=== PATIENT | female | born 1985 | race Asian ===

== ENCOUNTER 2016-11-26 09:30 | Outpatient (CLI) | payer OTHER | END 2016-11-26 09:31 | disposition home or self-care (01) | DX: Z36 Encounter for antenatal screening of mother (principal) ==

== ENCOUNTER 2017-01-28 08:00 | Outpatient (CLI) | payer OTHER | END 2017-01-28 23:59 | disposition home or self-care (01) | DX: Z36 Encounter for antenatal screening of mother (principal) ==

== ENCOUNTER 2017-02-26 08:56 | Inpatient (IN) | payer OTHER ==
[2017-02-26] MEDS ORDERED: SODIUM CHLORIDE FLUSH 0.9% 10 ML SYRINGE IVP PRN (09:50)
[2017-02-26] MEDS ORDERED: LACTATED RINGERS 1,000 ML IV SCH ×2 (10:00→15:00)
[2017-02-26] MEDS ORDERED: SODIUM CHLORIDE FLUSH 0.9% 10 ML SYRINGE IVP ONE (11:46)
[2017-02-26] MEDS ORDERED: LACTATED RINGERS 1,000 ML IV ONE (11:46)
[2017-02-26] MEDS ORDERED: fent/BUPIV 2 MCG/0.125% 250 ML EP ONE (13:02)
[2017-02-26] MEDS ORDERED: fentaNYL 100 MCG/2 ML VIAL ONE (13:02)
[2017-02-26] MEDS ORDERED: ROPIVACAINE 0.2% PF 10 ML VIAL EPI ONE (13:30)
[2017-02-26] MEDS ORDERED: diphenhydrAMINE INJ 50 MG/ML VIAL IVP PRN (13:36)
[2017-02-26] MEDS ORDERED: METOCLOPRAMIDE 10 MG/2 ML VIAL IVP PRN (13:36)
[2017-02-26] MEDS ORDERED: fent/BUPIV 2 MCG/0.125% 250 ML EP PRN (13:36)
[2017-02-26] MEDS ORDERED: ONDANSETRON 4 MG/2 ML VIAL IVP PRN (13:36)
[2017-02-26] MEDS ORDERED: ePHEDrine 50 MG/ML AMP IVP PRN (13:36)
[2017-02-26] MEDS ORDERED: NALBUPHINE 20 MG/ML AMP IVP PRN (13:36)
[2017-02-26] MEDS ORDERED: NALOXONE 0.4 MG/ML VIAL IVP PRN (13:36)
[2017-02-26] MEDS ORDERED: LACTATED RINGERS 500 ML IV ONE (13:36)
[2017-02-26] MEDS ORDERED: OXYTOCIN/LACTATED RINGERS 0 ML IV ONE (13:55)
[2017-02-26] MEDS ORDERED: LIDOCAINE 1% 50 ML MDV ONE ×2 (13:56→13:58)
[2017-02-26] MEDS ORDERED: OXYTOCIN/LACTATED RINGERS 250 ML IV ONE ×2 (13:59→14:52)
[2017-02-26] MEDS ORDERED: MINERAL OIL LIGHT 10 ML MC ONE (13:59)
[2017-02-26] MEDS ORDERED: SODIUM CHLORIDE FLUSH 0.9% 10 ML SYRINGE IVP SCH (14:00)
[2017-02-26] MEDS ORDERED: WITCH HAZEL/GLYCERIN 1 EACH MED..PAD TOP PRN (14:52)
[2017-02-26] MEDS ORDERED: HYDROCORTISONE/PRAMOXINE 10 GM PR PRN (14:52)
[2017-02-26] MEDS ORDERED: diphenhydrAMINE 25 MG CAPSULE PO PRN (14:52)
[2017-02-26] MEDS: ACETAMINOPHEN 325 MG TABLET PO PRN (18:38)
[2017-02-26] MEDS: IBUPROFEN 600 MG TABLET PO SCH (18:39)
[2017-02-27] MEDS: IBUPROFEN 600 MG TABLET PO SCH ×4 (00:48→21:50)
[2017-02-27] MEDS ORDERED: SODIUM CHLORIDE FLUSH 0.9% 10 ML SYRINGE IVP ONE (00:50)
[2017-02-27] MEDS: ACETAMINOPHEN 325 MG TABLET PO PRN ×2 (14:20→21:50)
[2017-02-27] MEDS: HYDROcod/ACETAM 5/325 MG TABLET PO PRN (15:59)
[2017-02-28] MEDS: ACETAMINOPHEN 325 MG TABLET PO PRN ×2 (03:54→10:25)
[2017-02-28] MEDS: IBUPROFEN 600 MG TABLET PO SCH ×2 (03:54→10:25)
[2017-02-28] MEDS: HYDROcod/ACETAM 5/325 MG TABLET PO PRN (10:25)
== END 2017-02-28 12:00 | disposition home or self-care (01) | DRG 774 ==
PROC: 10D07Z6 Extraction of Products of Conception, Vacuum, Via Natural or Artificial Opening (ICD-10-PCS; principal; 2017-02-26)
DX: O42.02 Full-term premature rupture of membranes, onset of labor within 24 hours of rupture (principal); O16.3 Unspecified maternal hypertension, third trimester; O69.0XX0 Labor and delivery complicated by prolapse of cord, not applicable or unspecified; O76 Abnormality in fetal heart rate and rhythm complicating labor and delivery; O36.63X0 Maternal care for excessive fetal growth, third trimester, not applicable or unspecified; Z3A.39 39 weeks gestation of pregnancy; Z37.0 Single live birth

== ENCOUNTER 2017-04-16 18:53 | Outpatient (CLI) | payer OTHER | END 2017-04-16 18:54 | disposition home or self-care (01) | LOC: DI 18:53 | PROVIDERS: ATTEND Obstetrics & Gynecology | DX: Z53.9 Procedure and treatment not carried out, unspecified reason (principal) ==

== ENCOUNTER 2019-01-07 14:54 | Outpatient (CLI) | payer BC ==
--- NOTE | 2019-01-08 09:45 | Ultrasound Report ---
Reason: TEST POSITIVE Procedure Date: 01/07/2019 Accession Number: [id number] / [id number] Procedure: US - OB First Trimester CPT Code: FULL RESULT: EXAM: FIRST TRIMESTER OBSTETRIC ULTRASOUND (Less than 11 weeks) EXAM DATE: 01/07/2019 04:14 PM. CLINICAL HISTORY: test positive. LMP: Possibly 11/18/2018, patient unsure of dates. COMPARISONS: None. TECHNIQUE: Transabdominal and transvaginal ultrasound examination with static image documentation. CLINICAL DATES: EGA 9 weeks 4 days with SAMARA 08/08/2019 based on current ultrasound. ASSESSMENT: Gestational Sac: Single intrauterine. Mean gestational sac diameter: 41.6 mm = 9 weeks 4 days. Embryo: CRL (crown-rump length) 27.7 mm = 9 weeks 4 days. Cardiac activity: 170 beats per minute. Yolk sac: 4.2 mm. Amniotic fluid: Not accurately assessed at this gestational age. Early placenta: Not visible at this gestational age. Other: No perigestational fluid collection demonstrated. MATERNAL STRUCTURES: Uterus: Retroverted. Unremarkable. Cervix: Closed. Right Ovary/Adnexa: The ovary measures 2.7 x 2.3 x 2.5 cm, volume 8.4 cc. Unremarkable. Left Ovary/Adnexa: The ovary measures 3.7 x 2.1 x 2.3 cm, volume 8.0 cc. Unremarkable. Free Fluid: None. Other: None. IMPRESSION: 1. Single viable intrauterine at EGA 9 weeks 4 days with SAMARA 08/08/2019 based on crown-rump length given uncertain LMP. 2. Assigned dating is SAMARA 08/08/2019 based on current ultrasound. RADIA
== END 2019-01-07 14:55 | disposition home or self-care (01) ==
LOC: DI 14:54
PROVIDERS: ATTEND Registered Nurse
DX: Z32.01 Encounter for pregnancy test, result positive (principal); Z3A.09 9 weeks gestation of pregnancy
CPT/HCPCS: 76801

== ENCOUNTER 2019-01-19 08:00 | Outpatient (CLI) | payer BC ==
[2019-01-19 16:50] LABS: MUDS CUTOFF CONCENTRATIONS CUTOFF CONC BELOW:
[2019-01-19 17:06] LABS: AMPHETAMINE SCREEN,URINE NEGATIVE (NEGATIVE); BENZODIAZEPINES SCREEN, URINE NEGATIVE (NEGATIVE); COCAINE SCREEN URINE NEGATIVE (NEGATIVE); METHADONE SCREEN, URINE NEGATIVE (NEGATIVE); METHAMPHETAMINES SCREEN, URINE NEGATIVE (NEGATIVE); OPIATE SCREEN, URINE NEGATIVE (NEGATIVE); OXYCODONE SCREEN, URINE NEGATIVE (NEGATIVE); PROPOXYPHENE SCREEN, URINE NEGATIVE (NEGATIVE); TRICYCLIC ANTIDEPRESSANT,URINE NEGATIVE (NEGATIVE)
== END 2019-01-19 23:59 | disposition home or self-care (01) ==
LOC: LAB.R 08:00
PROVIDERS: ATTEND Nurse Practitioner Obstetrics & Gynecology
DX: Z36.9 Encounter for antenatal screening, unspecified (principal); Z11.3 Encounter for screening for infections with a predominantly sexual mode of transmission
CPT/HCPCS: 80306; 87491; 87591

== ENCOUNTER 2019-01-19 13:05 | Outpatient (CLI) | payer BC ==
[2019-02-12 18:33] LABS: BASOPHILS # (AUTO) 0.1 10^3/uL (0.0-0.1); BASOPHILS % (AUTO) 0.5 %; EOSINOPHILS # (AUTO) 0.3 10^3/uL (0.0-0.7); EOSINOPHILS % (AUTO) 2.9 %; HGB - HEMOGLOBIN 12.5 g/dL (12.0-16.0); LYMPHOCYTES # (AUTO) 1.5 10^3/uL (1.5-3.5); LYMPHOCYTES % (AUTO) 14.2 %; MEAN CORPUSCULAR HEMOGLOBIN 28.4 pg (27.0-31.0); MEAN CORPUSCULAR HGB CONC 32.8 g/dL (32.0-36.0); MEAN CORPUSCULAR VOLUME 86.5 fL (81.0-99.0); MEAN PLATELET VOLUME 9.8 fL (7.9-10.8); MONOCYTES # (AUTO) 0.5 10^3/uL (0.0-1.0); MONOCYTES % (AUTO) 5.1 %; NEUTROPHILS # (AUTO) 8.1 10^3/uL (1.5-6.6); NEUTROPHILS % (AUTO) 77.3 %; PLT - PLATELET COUNT 244 10^3/uL (130-450); RED BLOOD COUNT 4.39 10^6/uL (4.20-5.40); RED CELL DISTRIBUTION WIDTH 13.4 % (12.0-15.0); WHITE BLOOD COUNT 10.4 x10^3/uL (4.8-10.8)
[2019-02-13 12:36] LABS: HIV AG/AB 4TH GEN NON-REACTIVE (NON-REACTIVE)
[2019-02-13 12:50] LABS: HEPATITIS B SURFACE ANTIGEN NON-REACTIVE (NON-REACTIVE)
[2019-02-13 13:07] LABS: HEPATITIS C ANTIBODY NON-REACTIVE (NON-REACTIVE)
== END 2019-01-19 23:59 | disposition home or self-care (01) ==
LOC: LAB.N 13:05
PROVIDERS: ATTEND Nurse Practitioner Obstetrics & Gynecology
DX: Z36.9 Encounter for antenatal screening, unspecified (principal)
CPT/HCPCS: 36415; 81001; 81599; 85025; 86762; 86803; 86850; 86900; 86901; 87086; 87340; 87389

== ENCOUNTER 2019-03-06 13:26 | Outpatient (CLI) | payer SELFPAY | END 2019-03-06 13:27 | disposition home or self-care (01) | LOC: LAB 13:26 | DX: Z31.5 Encounter for procreative genetic counseling (principal) | CPT/HCPCS: 36415 ==

== ENCOUNTER 2019-04-03 13:23 | Outpatient (CLI) | payer BC ==
--- NOTE | 2019-04-07 08:58 | Ultrasound Report ---
Reason: ROUTINE SCREENING ULTRASOUND Procedure Date: 04/03/2019 Accession Number: [id number] / [id number] Procedure: US - OB Detailed Eval CPT Code: FULL RESULT: EXAM: COMPLETE OBSTETRICAL ULTRASOUND EXAM DATE: 04/03/2019 02:40 PM. CLINICAL HISTORY: anatomic survey. COMPARISON: OB DETAILED EVAL 10/15/2016 7:53 AM. TECHNIQUE: Real-time sonographic evaluation of the fetus performed by the manager college. Multiple uniforms sales representative static images were saved for review. Additional transvaginal imaging to more accurately evaluate cervical length/placental position/etc. DATING: Established EGA 21 weeks 6 days with SAMARA 08/08/2019 based on LMP. EGA 21 weeks 6 days with SAMARA 08/08/2019 based on LMP. EGA 22 weeks 2 days with SAMARA 08/05/2019 based on the current ultrasound. GENERAL EVALUATION [place] . Cardiac activity: 142 bpm. movement: Visualized. Presentation: Transverse Placenta: Posterior position. No evidence for previa. Umbilical cord: 3 vessel cord. Central placental cord origin. Amniotic fluid: Subjectively normal. MVP 17.65 cm. BIOMETRY Bi-Parietal Diameter (BPD): 5.4 cm, 22 weeks 2 days Head Circumference (HC): 20.1 cm, 22 weeks 2 days Abdominal Circumference (AC): 17.8 cm, 22 weeks 5 days Femur Length (FL): 38.0 cm, 22 weeks 0 days Estimated Weight: 499 g, 70 percentile for 22 weeks 2 days. ANATOMY The intracranial structures, profile, face/nose/lips, spine, 4 chamber heart and outflow tracts, stomach, abdominal wall and cord insertion, diaphragm, kidneys, bladder, and extremities were visualized and demonstrate no abnormality. MATERNAL STRUCTURES Uterus: Unremarkable. Cervix: Long and closed. Transabdominal length 4.4 cm. Right ovary/adnexa: Unremarkable. Left ovary/adnexa: Unremarkable. Free fluid: None. IMPRESSION: 1. Wilcox live intrauterine with gestational age 22 weeks 2 days based on ultrasound. Size is concordant with dates. 2. Estimated weight is within expected limits for assigned dating. 3. Normal anatomic survey. No anatomic abnormalities are detected at this time. RADIA
== END 2019-04-03 13:24 | disposition home or self-care (01) ==
LOC: DI 13:23
PROVIDERS: ATTEND Registered Nurse
DX: Z36.9 Encounter for antenatal screening, unspecified (principal)
CPT/HCPCS: 76811

== ENCOUNTER 2019-04-28 14:44 | Outpatient (CLI) | payer BC ==
[2019-04-28 18:43] LABS: HGB - HEMOGLOBIN 10.5 g/dL (12.0-16.0); MEAN CORPUSCULAR HEMOGLOBIN 28.3 pg (27.0-31.0); MEAN CORPUSCULAR HGB CONC 31.4 g/dL (32.0-36.0); MEAN PLATELET VOLUME 11.7 fL (7.9-10.8); RED BLOOD COUNT 3.71 10^6/uL (4.20-5.40); RED CELL DISTRIBUTION WIDTH 13.2 % (12.0-15.0)
== END 2019-04-28 23:59 | disposition home or self-care (01) ==
LOC: LAB.N 14:44
PROVIDERS: ATTEND Nurse Practitioner Obstetrics & Gynecology
DX: Z36.89 Encounter for other specified antenatal screening (principal)
CPT/HCPCS: 82950; 85027; 86850

== ENCOUNTER 2019-07-15 08:00 | Outpatient (CLI) | payer BC ==
[2019-07-15 14:51] LABS: MUDS CUTOFF CONCENTRATIONS CUTOFF CONC BELOW:
[2019-07-15 15:22] LABS: AMPHETAMINE SCREEN,URINE NEGATIVE (NEGATIVE); BENZODIAZEPINES SCREEN, URINE NEGATIVE (NEGATIVE); COCAINE SCREEN URINE NEGATIVE (NEGATIVE); METHADONE SCREEN, URINE NEGATIVE (NEGATIVE); METHAMPHETAMINES SCREEN, URINE NEGATIVE (NEGATIVE); OPIATE SCREEN, URINE NEGATIVE (NEGATIVE); OXYCODONE SCREEN, URINE NEGATIVE (NEGATIVE); PROPOXYPHENE SCREEN, URINE NEGATIVE (NEGATIVE); TRICYCLIC ANTIDEPRESSANT,URINE NEGATIVE (NEGATIVE)
== END 2019-07-15 23:59 | disposition home or self-care (01) ==
LOC: LAB.R 08:00
PROVIDERS: ATTEND Obstetrics & Gynecology
DX: Z34.90 Encounter for supervision of normal pregnancy, unspecified, unspecified trimester (principal)
CPT/HCPCS: 80306

== ENCOUNTER 2019-07-15 08:00 | Outpatient (CLI) | payer BC ==
[2019-07-15 21:57] LABS: TRICHOMONAS VAGINALIS DNA NEGATIVE (NEGATIVE)
== END 2019-07-15 23:59 | disposition home or self-care (01) ==
LOC: LAB.R 08:00
PROVIDERS: ATTEND Obstetrics & Gynecology
DX: Z34.90 Encounter for supervision of normal pregnancy, unspecified, unspecified trimester (principal)
CPT/HCPCS: 87491; 87591; 87661; 87797

== ENCOUNTER 2019-08-04 11:45 | Outpatient (CLI) | payer BC ==
[2019-08-04 12:00] LABS: HGB - HEMOGLOBIN 12.3 g/dL (12.0-16.0); MEAN CORPUSCULAR HEMOGLOBIN 28.5 pg (27.0-31.0); MEAN CORPUSCULAR HGB CONC 31.9 g/dL (32.0-36.0); MEAN CORPUSCULAR VOLUME 89.4 fL (81.0-99.0); MEAN PLATELET VOLUME 12.8 fL (7.9-10.8); RED BLOOD COUNT 4.32 10^6/uL (4.20-5.40); RED CELL DISTRIBUTION WIDTH 13.2 % (12.0-15.0); WHITE BLOOD COUNT 12.9 x10^3/uL (4.8-10.8)
[2019-08-04 12:09] LABS: ALBUMIN 2.9 g/dL (3.2-5.5); ALBUMIN/GLOBULIN RATIO 0.7 (1.0-2.2); BILIRUBIN,TOTAL 0.4 mg/dL (0.2-1.0); CALCIUM 9.6 mg/dL (8.5-10.3); CREATININE 0.6 mg/dL (0.4-1.0); TOTAL PROTEIN 6.9 g/dL (6.7-8.2); URIC ACID 3.8 mg/dL (2.6-7.2)
[2019-08-04 12:16] LABS: CREATININE,URINE 46.3 mg/dL; MICROALBUM/CREATININE RATIO,UR 4.3 ug/mg (<30.0); MICROALBUMIN,URINE 0.2 mg/dL (0-300.0)
== END 2019-08-04 11:46 | disposition home or self-care (01) ==
LOC: LAB 11:45
PROVIDERS: ATTEND Nurse Practitioner Obstetrics & Gynecology
DX: R03.0 Elevated blood-pressure reading, without diagnosis of hypertension (principal)
CPT/HCPCS: 36415; 80053; 82043; 82570; 84550; 85027

== ENCOUNTER 2019-08-11 13:42 | Inpatient (IN) | payer BC ==
[~2019-08-11 13:42] MED LIST: ONDANSETRON 4 MG/2 ML VIAL IVP PRN; SODIUM CHLORIDE FLUSH 0.9% 10 ML SYRINGE IVP PRN; miSOPROStol 100 MCG TABLET BC SCH
--- NOTE | 2019-08-11 13:46 | HISTORY & PHYSICAL EXAMINATION ---
Admit History - Visit Reason Visit Reason: Other - : 4 Parity: 2 Premature: 0 Ectopic: 0 : 1 Care: positive: [facility] Risk/History: positive: None Complications This : positive: None Smoking Status: Never smoker - Mother's Labs Mother's Blood Type: positive: O Mother's RH: positive: Positive GBS: positive: Group B Step Negative Rubella Status: positive: Immune Meds/Allgy - Allergies Allergies/Adverse Reactions: Allergies Allergy/AdvReac Type Severity Reaction Status Date / Time No Known Drug Allergies Allergy Verified 10/25/13 20:01 Review of Systems - Constitutional Constitutional: denies: Fatigue, Fever, Chills, Malaise - Eyes Eyes: denies: Blurred vision, Spots in vision, Dipolpia - Cardiovascular Cariovascular: denies: Irregular heart rate, Palpitations, Chest pain, Edema - Respiratory Respiratory: denies: SOB at rest - Gastrointestinal Gastrointestinal: denies: Abdominal pain, Constipation, Diarrhea - Integumentary Integumentary: denies: Rash, Pruritis - Neurological Neurological: denies: Headache - Psychiatric Psychiatric: denies: Depression, Anxiety Physical - Monitoring Heart Rate Baseline: 150 - Presentation Presentation: positive: Vertex - Vaginal Exam Membranes: positive: Membranes intact Dilation (in cm): 2-3 Effacement (%): 50 Station: positive: -3 Cervical Position: positive: Posterior - Speculum Exam Speculum Exam Performed: positive: No Plan for Labor - Plan For Labor I expect patient to be DC'd or transferred within 96 hours.: Yes Plan for Labor: HPI: This 24yo @ 40.3wks gestation presents to [facility] for elective induction of labor with pre-induction cervical ripening with misoprostol. She has been a patient of [facility] through the duration of her . Her has been complicated only by anemia for which she has been taking bid FeSO4. In addition she had 2 separate visits with elevated BP without the diagnosis of hypertension and her PIH labs were WNL. Her BP today was WNL. She denies LEWIS, visual disturbances, RUQ or epigastric pain. Trace edema to LE's bilaterally. SVE 2-3/50/-3, vertex. Pt reports +FM. She denies VB, Lof, or contractions. Dating criteria: LMP: unsure Initial ultrasound 01/07/2019 @ 9.4wks gestation dates , unsure LMP Serial exams: agree OB Hx: G1: 10/2006 elective at 12wks G2: 10/26/2013 at 39wks; 10hr labor, epidural [facility], Male, [id number] G3: 02/26/2017 at 40wks; VAVD, epidural, [facility], Male, 9lb 1 oz, VAVD for NRFHT's G4: Current Medications: PNV; FeSO4 Allergies: NKDA PMHx: no significant Surgical Hx: none Family Hx: Stroke/CVA - mother; HTN - mother; diabetes- mother Social Hx: Never smoker, no ETOH or IVDA. [place] Initial U/S: 01/07/2019 @ 9.4wks dates , unsure LMP O pos/Rubella immune Gentic testing: [place] neg - sex female FAS: 04/07/2019 WNL, 3VC. Posterior placenta, no previa. Size c/w dating. Glucola WNL TDAP 05/26/2019 GBS & GC/CT neg/neg HSV: denies Breast pump Rx MOD: anticipate Physical exam: Normocephalic, atraumatic HEart RRR w/o M/G/R LUngs CTAB Abdomen gravid, soft, nontender EFW 3300g SVE 2-3/50/-3, vertex, medium consistency, posterior Bilateral LE's trace edema Mood is good Assessment: 34yo @ 40.3wks gestation by 9.4wk U/S pre-induction cervical ripening with misoprostol FHR Category I Plan: Pre-induction cervical ripening with misoprostol 50mcg q 4 hours Plan AROM next SVE Continuous monitoring Nitrous oxide PRN Jacuzzi PRN Encouraged ambulation and frequent position changes Epidural per maternal request Pt and verbalized understanding and agree to above plan. They deny further questions or concerns at this time.
[2019-08-11] MEDS ORDERED: LACTATED RINGERS 1,000 ML IV SCH (14:00)
[2019-08-11] MEDS ORDERED: miSOPROStol 100 MCG TABLET ONE (14:16)
[2019-08-11 15:13] LABS: BASOPHILS % (AUTO) 0.3 %; EOSINOPHILS # (AUTO) 0.2 10^3/uL (0.0-0.7); EOSINOPHILS % (AUTO) 1.4 %; HGB - HEMOGLOBIN 12.7 g/dL (12.0-16.0); LYMPHOCYTES # (AUTO) 1.8 10^3/uL (1.5-3.5); LYMPHOCYTES % (AUTO) 12.7 %; MEAN CORPUSCULAR HEMOGLOBIN 29.3 pg (27.0-31.0); MEAN CORPUSCULAR VOLUME 88.7 fL (81.0-99.0); MEAN PLATELET VOLUME 13.3 fL (7.9-10.8); MONOCYTES # (AUTO) 0.8 10^3/uL (0.0-1.0); MONOCYTES % (AUTO) 5.8 %; NEUTROPHILS # (AUTO) 11.4 10^3/uL (1.5-6.6); NEUTROPHILS % (AUTO) 78.5 %; PLT - PLATELET COUNT 195 10^3/uL (130-450); RED BLOOD COUNT 4.34 10^6/uL (4.20-5.40); RED CELL DISTRIBUTION WIDTH 13.4 % (12.0-15.0); WHITE BLOOD COUNT 14.5 x10^3/uL (4.8-10.8)
--- NOTE | 2019-08-11 15:59 | PROVIDER PROGRESS NOTE ---
Labor Progress Note - Uterine Monitoring Uterine Monitoring Mode: positive: External toco Contraction Frequency (min/apart): 2-6 Contraction Intensity: positive: Mild to moderate Uterine Resting Tone: positive: Soft - Monitoring Monitor Mode: positive: External ultrasound Heart Rate Baseline: 145 Heart Rate Variability: positive: Moderate (6-25 bmp) Accelerations: positive: Present, 15x15 Decelerations: positive: None Strip Review: positive: Category I - Vaginal Exam Dilation (in cm): 3 Effacement (%): 50 Station: -2 Cervical Position: Midposition - Labor Progress Note Labor Progress Note/Additional Text: S: Sitting up in bed comfortable. She is not feeling her contractions that are picking up on the monitor. supportive at the bedside. O: FHR baseline 145, moderate variability, + accels, no decels Contractions palpate mild every 2-6 minutes with soft resting tone SVE 3/50/-2, vertex, midposition, medium consistency AROM moderate amount of clear fluid A: 34yo @ 40.3wks gestation Pre-induction cervical ripening s/p 1 dose of 50mcg BC misoprostol FHR Category I P: Continue pre-induction cervical ripening with 50mcg BC misoprostol q 4 hours. Plan initiation of pitocin with titration per protocol following 4 hours after next dosage of misoprostol. Continuous monitoring Encouraged ambulation and position changes Jacuzzi PRN Epidural PRN Anticipate spontaneous vaginal delivery. Pt and verbalized understanding and agrees to above plan. She denies further questions or concerns at this time.
[2019-08-11] MEDS ORDERED: SODIUM CHLORIDE FLUSH 0.9% 10 ML SYRINGE IVP SCH (17:00)
[2019-08-11] MEDS ORDERED: ROPIVACAINE 0.2% 200 MG/100 ML BAG EP ONE (17:50)
[2019-08-11] MEDS ORDERED: ROPIVACAINE 0.2% PF 20 ML AMPULE ONE (17:50)
[2019-08-11] MEDS ORDERED: fentaNYL 100 MCG/2 ML VIAL ONE (17:50)
[2019-08-11] MEDS ORDERED: diphenhydrAMINE INJ 50 MG/ML VIAL IVP PRN ×2 (18:42→19:16)
[2019-08-11] MEDS ORDERED: NALBUPHINE 10 MG/ML AMP IVP PRN ×2 (18:42→19:16)
[2019-08-11] MEDS ORDERED: ROPIVACAINE 0.2% 200 MG/100 ML BAG EP PRN ×2 (18:42→19:16)
[2019-08-11] MEDS ORDERED: ONDANSETRON 4 MG/2 ML VIAL IVP PRN ×2 (18:42→19:16)
--- NOTE | 2019-08-11 18:47 | ANESTHESIA ---
Pre-Anesthesia VS, & Labs - Diagnosis IUP term labor - Procedure labor epidural Height 5 ft 5 in Weight (kg) 96.978 kg - NPO Last Fluid Intake: t/o day Last Food Intake: 10/29 dinner @1700 - Is Patient ?: Yes - Lab Results Current Lab Results: Laboratory Tests 08/11/19 11:50: WBC 14.5 H, RBC 4.34, Hgb 12.7, Hct 38.5, MCV 88.7, MCH 29.3, MCHC 33.0, RDW 13.4, Plt Count 195, MPV 13.3 H, Neut # (Auto) 11.4 H, Lymph # (Auto) 1.8, [place] # (Auto) 0.8, Eos # (Auto) 0.2, Baso # (Auto) 0.0, Absolute Nucleated RBC 0.00, Nucleated RBC % 0.0 Lab results reviewed: Yes Fish Bones: 08/11/19 11:50 Home Medications and Allergies Active Medications Diphenhydramine HCl (Benadryl Inj) 12.5 - 25 mg IVP Q6HR PRN PRN Reason: ITCHING Lactated Ringer's (Lr) 1,000 mls @ 100 mls/hr IV .Q10H CARLOS Ropivacaine (Naropin 0.2%) 200 mg in 100 mls @ 0 mls/hr EP PRN PRN; Protocol PRN Reason: PAIN Misoprostol (Cytotec) 50 mcg BC Q4HR [facility] Last Admin: 08/11/19 14:33 Dose: 50 mcg Nalbuphine HCl (Nubain) 2.5 - 5 mg IVP Q4H PRN PRN Reason: Severe Itching Ondansetron HCl (Zofran Inj) 4 mg IVP Q4HR PRN PRN Reason: Nausea / Vomiting Ondansetron HCl (Zofran Inj) 4 mg IVP Q6HR PRN PRN Reason: Nausea / Vomiting Sodium Chloride (Normal Saline Flush 0.9%) 10 ml IVP 0100,0900,1700 [facility] Last Admin: 08/11/19 14:35 Dose: 10 ml Sodium Chloride (Normal Saline Flush 0.9%) 10 ml IVP PRN PRN PRN Reason: NEEDED PER PROVIDER ORDERS Last Admin: 08/11/19 14:35 Dose: 10 ml Allergies/Adverse Reactions: Allergies Allergy/AdvReac Type Severity Reaction Status Date / Time No Known Drug Allergies Allergy Verified 10/25/13 20:01 Anes History & Medical History - Anesthetic History Anesthesia Complications: reports: No previous complications Family history of Anesthesia Complications: Denies Family history of Malignant Hyperthermia: Denies - Medical History Smoking Status: Never smoker - Obstetrical History : 4 Parity: 2 Events: positive: None Complications: positive: None - Other History Other History: HX of PDPH with epidurals x2 Exam General: Alert, Oriented x3 Dental: WNL Mouth Openin Fingerbreadth Neck Mobility: Normal Mallampati classification: II Thyromental Distance: 4-6 cm Respiratory: No respiratory distress Cardiovascular: Regular rate Neurological: Normal speech Mental/Cognitive Status: Alert/Oriented X3, Normal for patient Cognitive Status: Within normal limits Plan Anesthesia Type: Epidural Consent for Procedure(s) Verified and Reviewed: Yes Code Status: Attempt Resuscitation ASA classification: 2-Mild systemic disease Is this case an emergency?: No
[2019-08-11] MEDS ORDERED: ePHEDrine 50 MG/ML VIAL IVP PRN (19:16)
[2019-08-11] MEDS ORDERED: METOCLOPRAMIDE 10 MG/2 ML VIAL IVP PRN (19:16)
[2019-08-11] MEDS ORDERED: NALOXONE 0.4 MG/ML VIAL IVP PRN (19:16)
[2019-08-11] MEDS ORDERED: LACTATED RINGERS 500 ML IV ONE (19:16)
[2019-08-11] MEDS ORDERED: OXYTOCIN/DEXTROSE 5 % 30 UNIT/500 ML BAG IV ONE ×2 (19:31→20:21)
[2019-08-11] MEDS: OXYTOCIN/DEXTROSE 5 % 30 UNIT/500 ML BAG IV PRN ×2 (19:35→20:10)
[2019-08-11] MEDS ORDERED: HYDROCORTISONE 1% CREAM 28 GM TUBE PR PRN (19:57)
[2019-08-11] MEDS ORDERED: WITCH HAZEL/GLYCERIN 1 PAD TOP PRN (19:57)
--- NOTE | 2019-08-11 20:04 | DELIVERY NOTE ---
Delivery Note - Labor Labor: positive: Induced by ARM - Infant Delivery Method Delivery Method: positive: Spontaneous vaginal delivery - Cervical Ripening Method Cervical Ripening Method: positive: Misoprostil - Presentation Presentation: positive: Vertex, MAGDA - right occiput anterior - Nuchal Cord Nuchal Cord: positive: None - Amniotic Fluid Description Amniotic Fluid Description: positive: Clear - Episiotomy Type Episiotomy Type: positive: None - Laceration Laceration: positive: None - Delivery Outcome Delivery Outcome: positive: Livebirth - [place]: positive: Placed in direct skin contact with mother, Bulb syringe, Stimulated, Warmed, Ward used - Cord Cord: positive: 3 vessels - Placenta Placenta: positive: Intact, Spontaneous - Estimated Blood Loss Estimated Blood Loss (in cc): 250 - Post Delivery Events Post Delivery Events: positive: No post delivery events - Delivery Comments (Free Text/Narrative) Delivery Comments (Free Text/Narrative): Labor: This 34yo @ 40.3wks gestation by 9.4wk U/S presented to [facility] for elective induction of labor at approximately 1340. Cervix was 2-3/50/-3, posterior, vertex. Pt was given 50mcg BC misoprostol x 1 for pre-induction cervical ripening. AROM occurred at approximately 1535 and was noted to be a moderate amount of clear fluid. FHR pattern demonstrated Category I pattern with intermittent periods of Category II but overall reassuring. Normal labor course. Epidural placed per maternal request. Patient progressed to c/c/+1 at 1915. : Normal of viable female infant on 08/11/2019 @ 1935. No nuchal cord. The was stimulated, dried, and placed skin to skin. 's were 8/9 at 1 and 5 min respectively. The umbilical cord was allowed to stop pulsating at [facility] time it was doubly clamped by CNM and cut by the patient. Pitocin administered via IV for hemostasis. Cord blood was obtained. Placenta delivered spontaneously and intact at 1942. 3VC. Cord blood was obtained. EBL 250mL. Fourth stage: Uterine fundus firm and there is no excessive bleeding. The perineum, vagina, and cervix were inspected and found to be intact. Tissues well approximated. Family bonding well. Both mother and baby were left skin to skin and in stable condition.
[2019-08-12] MEDS: IBUPROFEN 800 MG TABLET PO SCH ×4 (00:12→18:43)
[2019-08-12] MEDS: DOCUSATE SODIUM 100 MG CAPSULE PO SCH (00:12)
[2019-08-12] MEDS: ACETAMINOPHEN 500 MG TABLET PO SCH ×4 (04:32→16:52)
[2019-08-13] MEDS: IBUPROFEN 800 MG TABLET PO SCH ×2 (01:04→08:41)
[2019-08-13] MEDS: ACETAMINOPHEN 500 MG TABLET PO SCH ×2 (01:05→08:40)
--- NOTE | 2019-08-13 07:13 | PROVIDER PROGRESS NOTE ---
Subjective - Prog Note Date Prog Note Date: 08/12/19 Prog Note Time: 07:30 - Subjective Subjective: S: Bonding well with baby. without difficulty. Pain well controlled with oral medications and is only feeling some cramping with . Bleeding decreased and is light. She is okay with staying another night with plans to go home tomorrow. She states she slept well last night and got a couple of 2-3 hour stretches of sleep in last night. O: Heart RRR w/o M/G/R, lungs CTAB, abdomen soft and nontender with fundus firm at U. Bilateral LE's no edema. A: 34yo -->P3 PPD#1 s/p TSVD of viable female P: Continue routine pp care and medications. Evaluate for discharge home tomorrow. Objective - Vital Signs/Intake & Output Vital Signs: Vital Signs x48h Temp Pulse Resp BP Pulse Ox 08/13/19 01:00 37.0 C 61 16 122/78 98 Intake & Output: Intake & Output 08/10/19 08/11/19 08/12/19 08/13/19 23:59 23:59 23:59 23:59 Intake Total 1000 Output Total 1150 Balance -150 - Lab Results Fish Bones: 08/11/19 11:50
--- NOTE | 2019-08-13 07:17 | PROVIDER PROGRESS NOTE ---
Subjective - Subjective Subjective: S: Bonding well with baby. without difficulty. Denies pain other than some discomfort in her lower back where epidural placement was difficult. Pain well controlled with oral medications. Bleeding decreased and is light. She feels she was able to get a couple of 2 hour stretches in last night. She is very ready to go home today. O: 122/78, HR 61, RR 16, T 37.0 Heart RRR w/o M/G/R, lungs CTAB, abdomen soft and nontender with fundus firm at U-1, bilateral LE's no edema. A: 24yo -->P3 PPD#2 s/p TSVD of viable female infant . P: Reviewed pp self care and warning s/sx. Encouraged OTC ibuprofen and tylenol for pain management PRN Continue PNV while . F/u with myself at [facility] in 3 weeks for routine pp visit or sooner PRN. Pt verbalized understanding and agrees to above plan. She denies further questions or concerns at this time. Objective - Vital Signs/Intake & Output Vital Signs: Vital Signs x48h Temp Pulse Resp BP Pulse Ox 08/13/19 01:00 37.0 C 61 16 122/78 98 Intake & Output: Intake & Output 08/10/19 08/11/19 08/12/19 08/13/19 23:59 23:59 23:59 23:59 Intake Total 1000 Output Total 1150 Balance -150 - Lab Results Fish Bones: 08/11/19 11:50
--- NOTE | 2019-08-13 07:19 | Discharge Plan ---
Discharge Plan Problem Reviewed?: Yes Disposition: Home, Self Care Condition: Good Diet: Regular Activity Restrictions: No Restrictions Shower Restrictions: No Driving Restrictions: No Weight Bearing: Full Weight No Smoking: If you smoke, Please STOP! Call for help. Follow-up with: Harriett Cerna CNM, ARNP [Provider Admit Priv/Credential] -
--- NOTE | 2019-08-13 07:49 | DISCHARGE SUMMARY ---
Physician: GALEN Paul DATE OF ADMISSION: 08/11/2019 DATE OF DISCHARGE: 08/13/2019 DIAGNOSES ON ADMISSION 1. A 34-year-old G4, P2-0-1-2 at 40.3 weeks' gestation. 2. Elective induction of labor. DIAGNOSES ON DISCHARGE 1. A 34-year-old G4, P3-0-1-3, status post spontaneous vaginal delivery on 08/11/2019. 2. Normal recovery. 3. . HISTORY OF PRESENT ILLNESS: She is a patient of [facility] who presented on 08/11/2019 for elective induction of labor. Cervix was 2-3 cm dilated, 50% effaced, -3 station in a vertex position. The patient was given 50 mcg of BC misoprostol x1 for preinduction cervical ripening. AROM was noted to be a moderate amount of clear fluid. Epidural placed per paternal request. The patient progressed to spontaneously deliver a viable female infant on 08/11/2019 at 1935 hours. Apgars were 8 and 9 at one and five minutes, respectively. EBL 250 mL. The perineum, vagina, and cervix were inspected and found to be intact. She has been doing well in her course. She is ambulating and tolerating a regular diet. She is urinating without difficulty and her lochia is normal. Her pain is well controlled with oral medications. She will be discharged home today on day #2 with instructions to continue her vitamin while , and to continue ibuprofen and Tylenol [id number] as needed for pain management. She intends to follow up with myself at [facility] in 3 weeks for routine visit, or sooner if needed. She has been given precautions to call if she has any worsening fevers, chills, abdominal pain, increased bleeding, or foul-smelling vaginal lochia. TD: 08/13/2019 07:24 [id number]
[2019-08-13 08:30] VITALS: BP 129/87
[2019-08-13] MEDS: DOCUSATE SODIUM 100 MG CAPSULE PO SCH (08:40)
== END 2019-08-13 13:21 | disposition home or self-care (01) | DRG 807 ==
LOC: FBP 13:42 → WFO 13:42 → UNDOADMIN 15:53 → FBP 15:53
PROVIDERS: ADMIT Nurse Practitioner Obstetrics & Gynecology; ATTEND Nurse Practitioner Obstetrics & Gynecology
PROC: 10E0XZZ Delivery of Products of Conception, External Approach (ICD-10-PCS; principal; 2019-08-11)
PROC: 10907ZC Drainage of Amniotic Fluid, Therapeutic from Products of Conception, Via Natural or Artificial Opening (ICD-10-PCS; 2019-08-11)
DX: O99.02 Anemia complicating childbirth (principal); Z37.0 Single live birth; Z3A.40 40 weeks gestation of pregnancy
CPT/HCPCS: 85025; A9270; G0378; J7120

== ENCOUNTER 2022-01-29 08:24 | Outpatient (CLI) | payer BC ==
[2022-01-29 12:23] LABS: BASOPHILS % (AUTO) 0.1 %; EOSINOPHILS # (AUTO) 0.1 10^3/uL (0.0-0.7); EOSINOPHILS % (AUTO) 1.7 %; HCT - HEMATOCRIT 44.4 % (37.0-47.0); HGB - HEMOGLOBIN 13.8 g/dL (12.0-16.0); LYMPHOCYTES % (AUTO) 25.2 %; MEAN CORPUSCULAR HEMOGLOBIN 26.7 pg (27.0-31.0); MEAN CORPUSCULAR HGB CONC 31.1 g/dL (32.0-36.0); MEAN PLATELET VOLUME 11.3 fL (7.9-10.8); MONOCYTES # (AUTO) 0.4 10^3/uL (0.0-1.0); MONOCYTES % (AUTO) 4.5 %; NEUTROPHILS # (AUTO) 5.3 10^3/uL (1.5-6.6); NEUTROPHILS % (AUTO) 68.2 %; PLT - PLATELET COUNT 337 10^3/uL (130-450); RED BLOOD COUNT 5.16 10^6/uL (4.20-5.40); RED CELL DISTRIBUTION WIDTH 13.5 % (12.0-15.0); WHITE BLOOD COUNT 7.8 x10^3/uL (4.8-10.8)
[2022-01-29 12:51] LABS: THYROID STIMULATING HORMONE 11.12 uIU/mL (0.34-5.60)
[2022-01-29 12:53] LABS: FREE T4 (FREE THYROXINE) 0.74 ng/dL (0.58-1.64)
[2022-01-29 12:55] LABS: CREATININE 0.7 mg/dL (0.4-1.0)
[2022-01-29 21:46] LABS: ESTIMATED AVERAGE GLUCOSE 120 mg/dL (70-100); HEMOGLOBIN A1c% 5.8 % (4.27-6.07)
== END 2022-01-29 08:25 | disposition home or self-care (01) ==
LOC: LAB.N 08:24
PROVIDERS: ATTEND Nurse Practitioner Obstetrics & Gynecology
DX: Z13.9 Encounter for screening, unspecified (principal); Z13.6 Encounter for screening for cardiovascular disorders
CPT/HCPCS: 36415; 80048; 82465; 83036; 84439; 84443; 84478; 85025

== ENCOUNTER 2022-02-03 09:33 | Outpatient (CLI) | payer BC ==
[2022-02-06 12:36] LABS: THYROID PEROXIDASE ANTIBODIES 599 IU/mL (<9)
== END 2022-02-03 09:34 | disposition home or self-care (01) ==
LOC: LAB.N 09:33
PROVIDERS: ATTEND Nurse Practitioner Obstetrics & Gynecology
DX: R94.6 Abnormal results of thyroid function studies (principal)
CPT/HCPCS: 36415; 84481; 86376; 86800

== ENCOUNTER 2022-04-13 08:28 | Outpatient (CLI) | payer BC ==
[2022-04-13 11:33] LABS: EOSINOPHILS # (AUTO) 0.2 10^3/uL (0.0-0.7); EOSINOPHILS % (AUTO) 2.2 %; HCT - HEMATOCRIT 42.1 % (37.0-47.0); HGB - HEMOGLOBIN 13.2 g/dL (12.0-16.0); LYMPHOCYTES # (AUTO) 1.7 10^3/uL (1.5-3.5); LYMPHOCYTES % (AUTO) 20.4 %; MEAN CORPUSCULAR HEMOGLOBIN 27.4 pg (27.0-31.0); MEAN CORPUSCULAR HGB CONC 31.4 g/dL (32.0-36.0); MEAN CORPUSCULAR VOLUME 87.3 fL (81.0-99.0); MEAN PLATELET VOLUME 11.2 fL (7.9-10.8); MONOCYTES # (AUTO) 0.4 10^3/uL (0.0-1.0); MONOCYTES % (AUTO) 4.6 %; NEUTROPHILS # (AUTO) 6.1 10^3/uL (1.5-6.6); NEUTROPHILS % (AUTO) 72.4 %; PLT - PLATELET COUNT 315 10^3/uL (130-450); RED BLOOD COUNT 4.82 10^6/uL (4.20-5.40); RED CELL DISTRIBUTION WIDTH 13.4 % (12.0-15.0); WHITE BLOOD COUNT 8.5 x10^3/uL (4.8-10.8)
[2022-04-13 11:53] LABS: ALBUMIN 3.9 g/dL (3.2-5.5); ALBUMIN/GLOBULIN RATIO 1.1 (1.0-2.2); ALKALINE PHOSPHATASE 76 IU/L (42-121); ALT ALANINE AMINOTRANSFERASE 18 IU/L (10-60); AST ASPARTATE AMINOTRANSFERASE 19 IU/L (10-42); BILIRUBIN,TOTAL 0.6 mg/dL (0.2-1.0); BUN - BLOOD UREA NITROGEN 14 mg/dL (6-20); CARBON DIOXIDE - CO2 28 mmol/L (21-32); CHLORIDE 103 mmol/L (101-111); CHOL/HDL RATIO 3.2 (<4.4); CHOLESTEROL 190 mg/dL; CREATININE 0.6 mg/dL (0.4-1.0); GFR - MDRD 112 (>89); GLUCOSE 102 mg/dL (70-100); HDL CHOLESTEROL 59 mg/dL; LDL CHOLESTEROL,CALCULATED 115 mg/dL; LDL/HDL RATIO 1.9 (<4.4); POTASSIUM 4.2 mmol/L (3.5-5.0); SODIUM 139 mmol/L (135-145); TOTAL PROTEIN 7.4 g/dL (6.7-8.2); TRIGLYCERIDES 79 mg/dL; VLDL CHOLESTEROL 16 mg/dL
[2022-04-13 12:03] LABS: THYROID STIMULATING HORMONE 4.41 uIU/mL (0.34-5.60)
[2022-04-13 12:05] LABS: FREE T4 (FREE THYROXINE) 0.97 ng/dL (0.58-1.64)
== END 2022-04-13 08:29 | disposition home or self-care (01) ==
LOC: LAB.N 08:28
PROVIDERS: ATTEND Physician Assistant
DX: L50.9 Urticaria, unspecified (principal); R73.03 Prediabetes; E03.9 Hypothyroidism, unspecified
CPT/HCPCS: 36415; 80053; 80061; 83721; 84439; 84443; 85025

== ENCOUNTER 2023-01-12 09:16 | Outpatient (CLI) | payer BC ==
[2023-01-12 19:18] LABS: THYROID STIMULATING HORMONE 2.92 uIU/mL (0.34-5.60)
[2023-01-12 19:20] LABS: FREE T4 (FREE THYROXINE) 1.01 ng/dL (0.58-1.64)
== END 2023-01-12 09:17 | disposition home or self-care (01) ==
LOC: LAB.N 09:16
PROVIDERS: ATTEND Physician Assistant
DX: E03.9 Hypothyroidism, unspecified (principal)
CPT/HCPCS: 36415; 84439; 84443

== ENCOUNTER 2024-02-03 09:44 | Outpatient (CLI) | payer BC ==
[2024-02-03 12:12] LABS: BASOPHILS % (AUTO) 0.5 %; EOSINOPHILS # (AUTO) 0.4 10^3/uL (0.0-0.7); EOSINOPHILS % (AUTO) 5.5 %; HGB - HEMOGLOBIN 13.7 g/dL (12.0-16.0); LYMPHOCYTES # (AUTO) 2.6 10^3/uL (1.5-3.5); LYMPHOCYTES % (AUTO) 32.4 %; MEAN CORPUSCULAR HEMOGLOBIN 26.5 pg (27.0-31.0); MEAN CORPUSCULAR HGB CONC 29.8 g/dL (32.0-36.0); MEAN PLATELET VOLUME 11.5 fL (7.9-10.8); MONOCYTES # (AUTO) 0.5 10^3/uL (0.0-1.0); MONOCYTES % (AUTO) 6.4 %; NEUTROPHILS # (AUTO) 4.3 10^3/uL (1.5-6.6); NEUTROPHILS % (AUTO) 54.8 %; PLT - PLATELET COUNT 333 10^3/uL (130-450); RED BLOOD COUNT 5.17 10^6/uL (4.20-5.40); RED CELL DISTRIBUTION WIDTH 13.2 % (12.0-15.0); WHITE BLOOD COUNT 7.9 x10^3/uL (4.8-10.8)
[2024-02-03 12:33] LABS: ALBUMIN 4.2 g/dL (3.2-5.5); ALBUMIN/GLOBULIN RATIO 1.2 (1.0-2.2); ALKALINE PHOSPHATASE 87 IU/L (42-121); ALT ALANINE AMINOTRANSFERASE 13 IU/L (10-60); AST ASPARTATE AMINOTRANSFERASE 14 IU/L (10-42); BILIRUBIN,TOTAL 0.3 mg/dL (0.2-1.0); BUN - BLOOD UREA NITROGEN 14 mg/dL (6-20); CALCIUM 9.9 mg/dL (8.5-10.3); CARBON DIOXIDE - CO2 29 mmol/L (21-32); CHLORIDE 104 mmol/L (101-111); CHOL/HDL RATIO 3.3 (<4.4); CHOLESTEROL 175 mg/dL; CREATININE 0.7 mg/dL (0.6-1.3); GFR - MDRD 93 (>89); GLUCOSE 95 mg/dL (74-104); HDL CHOLESTEROL 53 mg/dL; LDL CHOLESTEROL,CALCULATED 84 mg/dL; LDL/HDL RATIO 1.6 (<4.4); POTASSIUM 4.1 mmol/L (3.5-4.5); SODIUM 138 mmol/L (135-145); TOTAL PROTEIN 7.8 g/dL (6.4-8.9); TRIGLYCERIDES 192 mg/dL (48-352); VLDL CHOLESTEROL 38 mg/dL
[2024-02-03 12:37] LABS: THYROID STIMULATING HORMONE 9.29 uIU/mL (0.34-5.60)
== END 2024-02-03 09:45 | disposition home or self-care (01) ==
LOC: LAB.N 09:44
PROVIDERS: ATTEND Physician Assistant
DX: R73.03 Prediabetes (principal); Z13.220 Encounter for screening for lipoid disorders; E03.9 Hypothyroidism, unspecified; Z79.899 Other long term (current) drug therapy
CPT/HCPCS: 36415; 80053; 80061; 83721; 84439; 84443; 85025